=== PATIENT | female | born 1965 | race Caucasian/White ===

== ENCOUNTER 2017-10-27 09:25 | Day surgery (SDC) | payer MEDICARE ==
[~2017-10-27] VITALS: Ht 162.6 cm; Wt 58.1 kg
[~2017-10-27 09:25] MED LIST: ALBU90OI INH; AZAT50; CIPR500 PO; GUAI600T33 PO; HYDACE5 PO; HYDSUL200 PO; Keflex500 MG PO; MULVITMIND PO; PRED5; PROM25 PO; PROM25S PR; SAVELLA50 MG; SEPTRA DS PO; STOMUL PO; TIOT18 INH; Z PAK
== END 2017-10-27 11:27 | disposition home or self-care (01) ==
LOC: ORSCMMR 09:25
PROVIDERS: Internal Medicine Gastroenterology
PROC: 0DBL8ZX Excision of Transverse Colon, Via Natural or Artificial Opening Endoscopic, Diagnostic (ICD-10-PCS; principal; 2017-10-27 10:30)
PROC: 0DBN8ZX Excision of Sigmoid Colon, Via Natural or Artificial Opening Endoscopic, Diagnostic (ICD-10-PCS; principal; 2017-10-27 10:30)
PROC: 0DBP8ZX Excision of Rectum, Via Natural or Artificial Opening Endoscopic, Diagnostic (ICD-10-PCS; principal; 2017-10-27 10:30)
PROC: 0DBM8ZX Excision of Descending Colon, Via Natural or Artificial Opening Endoscopic, Diagnostic (ICD-10-PCS; principal; 2017-10-27 10:30)
DX: R19.5 Other fecal abnormalities (principal); D12.4 Benign neoplasm of descending colon; K63.5 Polyp of colon; D12.3 Benign neoplasm of transverse colon; K62.1 Rectal polyp; J44.9 Chronic obstructive pulmonary disease, unspecified; Z79.899 Other long term (current) drug therapy
CPT/HCPCS: 88305; J7120

== ENCOUNTER → 2017-12-23 | Outpatient (CLI) | payer MEDICARE | LOC: LAB SHORT 07:54 → PLD 07:54 | DX: L98.9 Disorder of the skin and subcutaneous tissue, unspecified (principal) | CPT/HCPCS: 88305; 88312 ==

== ENCOUNTER → 2018-01-28 | Outpatient (CLI) | payer MEDICARE | END | disposition home or self-care (01) | LOC: LAB SHORT 09:26 → LAB 09:26 | PROVIDERS: Nurse Practitioner Obstetrics & Gynecology | DX: Z01.419 Encounter for gynecological examination (general) (routine) without abnormal findings (principal) | CPT/HCPCS: 87624; G0123 ==

== ENCOUNTER → 2018-11-27 | Outpatient (CLI) | payer MEDICARE ==
[2018-11-27 11:33] LABS: Source, Urine Clean Catch
[2018-11-27 13:16] LABS: Bilirubin, Urine Neg (Neg); Blood, Urine 1+ (Neg); Glucose Qualitative, Urine Neg (Neg); Ketones, Urine Neg (Neg); Leukocyte Esterase, Urine Neg (Neg); Nitrite, Urine Neg (Neg); Protein, Urine Neg (Neg); Urobilinogen, Urine NORM (Normal)
[2018-11-27 14:02] LABS: Appearance, Urine Clear (Clear); Color, Urine Yellow (P-Yellow)
[2018-11-27 14:08] LABS: Bacteria Rare /hpf; Red Blood Cells, Urine 0-2 /hpf (0-2); Squamous Epithelial Cells Rare /hpf (Few); White Blood Cells, Urine Not Seen /hpf (0-5)
== END | disposition home or self-care (01) ==
LOC: LAB 11:32 → LAB SHORT 11:32
PROVIDERS: Internal Medicine
DX: R31.9 Hematuria, unspecified (principal)
CPT/HCPCS: 81001

== ENCOUNTER → 2018-12-14 | Outpatient (CLI) | payer MEDICARE ==
[2018-12-14 16:30] LABS: Source, Urine Clean Catch
[2018-12-14 17:25] LABS: Appearance, Urine Clear (Clear); Bilirubin, Urine Neg (Neg); Blood, Urine 1+ (Neg); Color, Urine Yellow (P-Yellow); Glucose Qualitative, Urine Neg (Neg); Ketones, Urine Neg (Neg); Leukocyte Esterase, Urine Neg (Neg); Nitrite, Urine Neg (Neg); Protein, Urine Neg (Neg); Urobilinogen, Urine NORM (Normal)
[2018-12-14 17:41] LABS: Squamous Epithelial Cells Rare /hpf (Few)
[2018-12-14 17:42] LABS: Bacteria Not Seen /hpf; Red Blood Cells, Urine 0-2 /hpf (0-2); White Blood Cells, Urine Not Seen /hpf (0-5)
== END | disposition home or self-care (01) ==
LOC: LAB SHORT 16:28 → LAB 16:28
PROVIDERS: Internal Medicine
DX: R31.9 Hematuria, unspecified (principal)
CPT/HCPCS: 81001

== ENCOUNTER → 2019-01-08 | Outpatient (CLI) | payer MEDICARE ==
[2019-01-08 12:15] LABS: Source, Urine Clean Catch
[2019-01-08 13:07] LABS: Bilirubin, Urine Neg (Neg); Blood, Urine 1+ (Neg); Glucose Qualitative, Urine Neg (Neg); Ketones, Urine Neg (Neg); Leukocyte Esterase, Urine Neg (Neg); Nitrite, Urine Neg (Neg); Protein, Urine Neg (Neg); Specific Gravity, Urine 1.015 (1.003-1.022); Urobilinogen, Urine NORM (Normal)
[2019-01-08 14:17] LABS: Appearance, Urine Clear (Clear); Color, Urine Yellow (P-Yellow)
[2019-01-08 14:32] LABS: Bacteria Few /hpf; Red Blood Cells, Urine 0-2 /hpf (0-2); Squamous Epithelial Cells Rare /hpf (Few); White Blood Cells, Urine Not Seen /hpf (0-5)
[2019-01-08 14:52] LABS: Candida species (DNA Probe) Negative (NEGATIVE); G. vaginalis (DNA Probe) Negative (NEGATIVE); T. vaginalis (DNA Probe) Negative (NEGATIVE)
== END | disposition home or self-care (01) ==
LOC: LAB 11:16 → LAB SHORT 11:16
PROVIDERS: Advanced Practice Midwife
DX: N76.0 Acute vaginitis (principal); R10.2 Pelvic and perineal pain
CPT/HCPCS: 81001; 87086; 87480; 87510; 87660

== ENCOUNTER 2019-04-06 09:11 | Day surgery (SDC) | payer MEDICARE ==
[~2019-04-06] VITALS: Ht 162.6 cm; Wt 55.3 kg
[~2019-04-06 09:11] MED LIST changes: +FOLATE; +METTREX2.5 PO
--- NOTE | 2019-04-06 09:40 | NUR ---
History, Chart, Medications and Allergies reviewed before start of procedure. Patient States Post-Procedure ride home has been arranged. PT HAS HEARING AIDE ON RIGHT SIDE, WOULD LIKE TO KEEP IN DURING PROCEDURE.
--- NOTE | 2019-04-06 10:08 | NUR ---
04/06/19 1008 Pam Singh PATIENT DETERMINED TO BE ASA APPROPRIATE FOR PROPOFOL SEDATION PRIOR TO START OF PROCEDURE BY DR. HYLTON. 3-LEAD EKG REVIEWED WITH PHYSICIAN PRIOR TO START OF PROCEDURE. PATIENT CONFIRMS NPO STATUS AND AGREES WITH SCHEDULED PROCEDURE. History, Chart, Medications and Allergies reviewed before start of procedure. MONITOR INTACT WITH CONTINUOUS PULSE OXIMETRY AND INTERMITTENT BP. O2 VIA N/C INTACT THROUGHOUT SEDATION/PROCEDURE VIA POM MASK @ 10 L O2, END TIDAL CO2 IN PLACE. HURRICAINE SPRAY TO OROPHARYX, THEN Bite Block Placed IMMEDIATELY PRESEDATION.
--- NOTE | 2019-04-06 12:31 | NUR ---
PT C/O SORE THROAT. BRIAN ICE CHIPS. SPO2 REMAINS WNL 96-97% ON RA. AMBULATED WITH STEADY GAIT. MAINTAINS SATURATIONS DURING EXERTION. PT REPORTS SHE IS FEELING "BETTER" AND IS READY TO GO HOME. CALL MADE TO DR. HYLTON TO UPDATE. VERBALIZED UNDERSTANDING OF DC INSTRUCTIONS. DC'D IV INTACT. DC'D VIA WC.
== END 2019-04-06 23:09 | disposition home or self-care (01) ==
LOC: ORSCMMR 09:11 → ORD 10:00 → ORSCMMR 23:09
PROVIDERS: Internal Medicine Gastroenterology
PROC: 0DB98ZX Excision of Duodenum, Via Natural or Artificial Opening Endoscopic, Diagnostic (ICD-10-PCS; principal; 2019-04-06 10:00)
DX: R13.14 Dysphagia, pharyngoesophageal phase (principal); K29.80 Duodenitis without bleeding; K22.10 Ulcer of esophagus without bleeding; J44.9 Chronic obstructive pulmonary disease, unspecified; M79.7 Fibromyalgia; Z79.899 Other long term (current) drug therapy
CPT/HCPCS: 88305; 88342; J0330; J1100; J2250; J2704; J7120

== ENCOUNTER 2019-07-26 16:53 | Emergency (ER) | payer MEDICARE ==
[~2019-07-26] VITALS: Ht 162.6 cm; Wt 54.4 kg
[2019-07-26] MEDS ORDERED: OMEPRAZOLE DR 20 MG (17:50)
[2019-07-26] MEDS ORDERED: Ventolin/Prove6.7 GM (17:50)
== END 2019-07-26 18:38 | disposition home or self-care (01) ==
LOC: ER 16:53
DX: J44.1 Chronic obstructive pulmonary disease with (acute) exacerbation (principal); Z88.0 Allergy status to penicillin; Z79.899 Other long term (current) drug therapy
CPT/HCPCS: 71046; 94640; 99285-25; J1100

== ENCOUNTER → 2019-10-07 | Outpatient (CLI) | payer MEDICARE ==
[~2019-10-07] MED LIST changes: +OMEPRAZOLE DR 20 MG; +Ventolin/Prove6.7 GM
== END | disposition home or self-care (01) ==
LOC: LAB SHORT 09:05 → LAB 09:05
DX: R05 Cough (principal)
CPT/HCPCS: 87015; 87116; 87206

== ENCOUNTER → 2019-10-08 | Outpatient (CLI) | payer MEDICARE | END | disposition home or self-care (01) | LOC: LAB 08:26 → LAB SHORT 08:26 | DX: R05 Cough (principal) | CPT/HCPCS: 87015; 87116; 87206 ==

== ENCOUNTER 2020-12-29 06:11 | Day surgery (SDC) | payer MEDICARE ==
[~2020-12-29] VITALS: Ht 162.6 cm; Wt 52.5 kg
[~2020-12-29 06:11] MED LIST changes: +ACET500 PO; +DIPH25 PO; +FLUT.05NI; +FOLI1 PO; +IBUP200 PO; +MAGNESIUM CHLORIDE PO; +MIRALAX17 GM PO; -OMEPRAZOLE DR 20 MG; +OMEPRAZOLE DR 20 MG PO; +SERT50 PO; +SERTRALINE HCL50 MG PO
--- NOTE | 2020-12-29 06:55 | NUR ---
ARRIVES TO WITH WALKER. History, Chart, Medications and Allergies reviewed before start of procedure. Lungs clear T/O to Auscultation. Patient confirms NPO status and agrees with scheduled surgery. Pre-Op teaching done. Pt verbalizes understanding. Patient States Post-Procedure ride home has been arranged. Patient reports completing Chlorhexadine shower X2 prior to admission to hospital.
[2020-12-29] MEDS ORDERED: ROBITUSSIN100 MG/5 M PO (07:09)
--- NOTE | 2020-12-29 12:38 | NUR ---
Discharge instructions reviewed with patient. Patient verbalizes understanding. Copy given to patient to take home. Discharged via wheelchair to private car for ride home. CALLED AND SPOKE WITH SPOUSE OVER THE PHONE, REVEIWED DISCHARGE INSTRUCTIONS WITH HIM WELL PT.
== END 2020-12-29 22:58 | disposition home or self-care (01) ==
LOC: ORSCMMR 06:11
PROVIDERS: Surgery
PROC: 0YUA4JZ Supplement Bilateral Inguinal Region with Synthetic Substitute, Percutaneous Endoscopic Approach (ICD-10-PCS; principal; 2020-12-29 07:30)
PROC: 8E0W4CZ Robotic Assisted Procedure of Trunk Region, Percutaneous Endoscopic Approach (ICD-10-PCS; principal; 2020-12-29 07:30)
DX: K40.20 Bilateral inguinal hernia, without obstruction or gangrene, not specified as recurrent (principal); J44.9 Chronic obstructive pulmonary disease, unspecified; K21.9 Gastro-esophageal reflux disease without esophagitis; G80.9 Cerebral palsy, unspecified; M79.7 Fibromyalgia; Z79.899 Other long term (current) drug therapy
CPT/HCPCS: 49650; S2900; A9270; A9270-GY; C1781; J0690; J1100; J1885; J2250; J2405; J2704; J3010; J7120

== ENCOUNTER 2021-09-01 13:35 | Emergency (ER) | payer MEDICARE ==
[~2021-09-01] VITALS: Ht 162.6 cm; Wt 63.5 kg
[~2021-09-01 13:35] MED LIST changes: +ROBITUSSIN100 MG/5 M PO
[2021-09-01 14:26] LABS: BASOPHILS ABSOLUTE AUTO 0.06 K/mm3 (0.00-0.23); BASOPHILS PERCENT AUTO 1 % (0-2); EOSINOPHILS ABSOLUTE AUTO 0.65 K/mm3 (0.00-0.68); EOSINOPHILS PERCENT AUTO 7 % (0-6); Hemoglobin 13.1 g/dL (11.5-16.0); IMMATURE GRAN ABSOLUTE AUTO 0.05 K/mm3 (0.00-0.10); IMMATURE GRAN PERCENT AUTO 1 % (0-1); LYMPHOCYTES ABSOLUTE AUTO 1.02 K/mm3 (0.84-5.20); LYMPHOCYTES PERCENT AUTO 11 % (21-46); MONOCYTES ABSOLUTE AUTO 1.08 K/mm3 (0.16-1.47); MONOCYTES PERCENT AUTO 12 % (4-13); Mean Corpuscular HGB 27.9 pg (26.0-34.0); Mean Corpuscular HGB Conc 32.8 g/dL (31.5-36.5); Mean Corpuscular Volume 85 fL (80-100); Mean Platelet Volume 10.1 fL (9.1-12.4); NEUTROPHILS ABSOLUTE AUTO 6.47 K/mm3 (1.96-9.15); NEUTROPHILS PERCENT AUTO 69 % (41-73); Platelet Count 183 K/mm3 (150-400); RDW Coefficient Variation 13.6 % (11.7-14.2); RDW Standard Deviation 42.6 fL (35.1-46.3); White Blood Cell Count 9.33 K/mm3 (4.00-11.30)
[2021-09-01 14:26] LABS: Source, Urine Catheter
[2021-09-01 14:31] LABS: Appearance, Urine Hazy (Clear); Bilirubin, Urine Neg (Neg); Blood, Urine 4+ (Neg); Color, Urine Yellow (P-Yellow); Glucose Qualitative, Urine Neg (Neg); Ketones, Urine Neg (Neg); Leukocyte Esterase, Urine 1+ (Neg); Nitrite, Urine Pos (Neg); Protein, Urine 2+ (Neg); Urobilinogen, Urine NORM (Normal)
[2021-09-01 14:45] LABS: Amorphous Light (0-Heavy); Bacteria Many /hpf; Mucus Mod (0-Heavy); Squamous Epithelial Cells Few /hpf (Few)
[2021-09-01 14:46] LABS: Granular Casts 0-2 /lpf (0); Hyaline Casts 0-2 /lpf (0-2)
[2021-09-01 14:47] LABS: Alanine Aminotransfer (ALT/SGP 29 U/L (12-78); Albumin, Blood 3.2 g/dL (3.4-5.0); Albumin/Globulin Ratio 0.7 (0.8-1.8); Alk Phos 79 U/L (50-136); Anion Gap 7 mmol/L (6-16); Aspartate Aminotrans (AST/SGOT 30 U/L (12-37); Bilirubin, Total 0.4 mg/dL (0.1-1.0); Blood Urea Nitrogen 22 mg/dL (8-24); Bun/Creatinine Ratio 34.1 (12.0-20.0); CO2, Blood 27 mmol/L (21-32); Calcium, Blood 9.1 mg/dL (8.5-10.1); Chloride, Blood 106 mmol/L (98-108); Creatinine, Blood 0.65 mg/dL (0.40-1.00); Globulin, Blood 4.9 g/dL (2.2-4.0); Glomerular Filtration Rate >60 (60-); Glucose, Blood 119 mg/dL (70-99); Potassium, Blood 4.1 mmol/L (3.5-5.5); Sodium, Blood 140 mmol/L (136-145); Total Protein, Blood 8.1 g/dL (6.4-8.2)
[2021-09-01] MEDS ORDERED: CEPH500 PO (17:00)
== END 2021-09-01 17:48 | disposition home or self-care (01) ==
LOC: ER 13:35
PROVIDERS: Emergency Medicine; Physician Assistant
DX: N39.0 Urinary tract infection, site not specified (principal); J44.9 Chronic obstructive pulmonary disease, unspecified; Z88.0 Allergy status to penicillin; Z79.899 Other long term (current) drug therapy
CPT/HCPCS: 36415; 51701; 70450; 80053; 81001; 85025; 87077; 87086; 87186; 96365; 99285-25; J0696; J7030

== ENCOUNTER 2021-09-14 11:22 | Emergency (ER) | payer MEDICARE ==
[~2021-09-14] VITALS: Ht 162.6 cm; Wt 54.4 kg
[~2021-09-14 11:22] MED LIST changes: +CEPH500 PO
[2021-09-14 11:49] LABS: Source, Urine Clean Catch
[2021-09-14 11:54] LABS: Appearance, Urine Hazy (Clear); Bilirubin, Urine Neg (Neg); Blood, Urine 3+ (Neg); Color, Urine Yellow (P-Yellow); Glucose Qualitative, Urine Neg (Neg); Ketones, Urine Neg (Neg); Leukocyte Esterase, Urine 1+ (Neg); Nitrite, Urine Pos (Neg); Protein, Urine 1+ (Neg); Urobilinogen, Urine NORM (Normal)
[2021-09-14 12:16] LABS: BASOPHILS ABSOLUTE AUTO 0.12 K/mm3 (0.00-0.23); BASOPHILS PERCENT AUTO 1 % (0-2); EOSINOPHILS ABSOLUTE AUTO 0.15 K/mm3 (0.00-0.68); EOSINOPHILS PERCENT AUTO 1 % (0-6); Hematocrit 46.8 % (33.0-51.0); Hemoglobin 14.6 g/dL (11.5-16.0); IMMATURE GRAN ABSOLUTE AUTO 0.04 K/mm3 (0.00-0.10); IMMATURE GRAN PERCENT AUTO 0 % (0-1); LYMPHOCYTES ABSOLUTE AUTO 1.39 K/mm3 (0.84-5.20); LYMPHOCYTES PERCENT AUTO 11 % (21-46); MONOCYTES ABSOLUTE AUTO 1.21 K/mm3 (0.16-1.47); MONOCYTES PERCENT AUTO 10 % (4-13); Mean Corpuscular HGB 27.1 pg (26.0-34.0); Mean Corpuscular HGB Conc 31.2 g/dL (31.5-36.5); Mean Corpuscular Volume 87 fL (80-100); NEUTROPHILS ABSOLUTE AUTO 9.76 K/mm3 (1.96-9.15); NEUTROPHILS PERCENT AUTO 77 % (41-73); Platelet Count 266 K/mm3 (150-400); RDW Coefficient Variation 13.8 % (11.7-14.2); RDW Standard Deviation 44.4 fL (35.1-46.3); Red Blood Cell Count 5.39 M/mm3 (3.80-5.20); White Blood Cell Count 12.67 K/mm3 (4.00-11.30)
[2021-09-14 12:32] LABS: Red Blood Cells, Urine 0-2 /hpf (0-2)
[2021-09-14 12:33] LABS: Bacteria Many /hpf; Mucus Light (0-Heavy); Squamous Epithelial Cells Not Seen /hpf (Few)
[2021-09-14 12:40] LABS: Alanine Aminotransfer (ALT/SGP 29 U/L (12-78); Albumin, Blood 3.5 g/dL (3.4-5.0); Albumin/Globulin Ratio 0.7 (0.8-1.8); Alk Phos 78 U/L (50-136); Anion Gap 5 mmol/L (6-16); Aspartate Aminotrans (AST/SGOT 35 U/L (12-37); Bilirubin, Total 0.7 mg/dL (0.1-1.0); Blood Urea Nitrogen 18 mg/dL (8-24); CO2, Blood 28 mmol/L (21-32); Calcium, Blood 9.2 mg/dL (8.5-10.1); Chloride, Blood 106 mmol/L (98-108); Creatinine, Blood 0.69 mg/dL (0.40-1.00); Ethanol (Alcohol), Blood, Med <3 mg/dL; Globulin, Blood 4.8 g/dL (2.2-4.0); Glomerular Filtration Rate >60 (60-); Glucose, Blood 127 mg/dL (70-99); Potassium, Blood 3.9 mmol/L (3.5-5.5); Salicylate <1.7 mg/dL (2.8-20.0); Sodium, Blood 139 mmol/L (136-145); Total Protein, Blood 8.3 g/dL (6.4-8.2)
[2021-09-14 12:50] LABS: Acetaminophen, Random <2.0 ug/mL (10.0-30.0)
[2021-09-14 12:59] LABS: U Amphetamine Screen Not Detected; U Barbituate Screen Not Detected; U Benzodiazapine Screen DETECTED; U Cocaine Screen Not Detected; U Methadone Screen Not Detected; U Methamphetamine Screen Not Detected; U Opiates Screen Not Detected; U Phencyclidine Screen Not Detected
[2021-09-14 13:00] LABS: U Buprenorphine Screen Not Detected; U Cannabinoids Screen Not Detected; U Oxycodone Screen Not Detected; U Propoxyphene Screen Not Detected
[2021-09-14] MEDS ORDERED: RISPERDAL PO (15:00)
== END 2021-09-14 15:20 | disposition home or self-care (01) ==
LOC: ER 11:22
PROVIDERS: Physician Assistant
DX: F22 Delusional disorders (principal); J44.9 Chronic obstructive pulmonary disease, unspecified; Z79.899 Other long term (current) drug therapy; Z88.0 Allergy status to penicillin
CPT/HCPCS: 36415; 80053; 81001; 85025; 87077; 87086; 87186; 93005; 93010; G0480

== ENCOUNTER 2021-09-18 10:38 | Observation (INO) | payer MEDICARE ==
[~2021-09-18] VITALS: Ht 162.6 cm; Wt 49.5 kg
[~2021-09-18 10:38] MED LIST changes: +OMEP20ER PO; -OMEPRAZOLE DR 20 MG PO; +RISPERDAL PO
[2021-09-18 15:46] LABS: BASOPHILS ABSOLUTE AUTO 0.12 K/mm3 (0.00-0.23); BASOPHILS PERCENT AUTO 1 % (0-2); EOSINOPHILS ABSOLUTE AUTO 0.09 K/mm3 (0.00-0.68); EOSINOPHILS PERCENT AUTO 1 % (0-6); Hematocrit 47.5 % (33.0-51.0); IMMATURE GRAN ABSOLUTE AUTO 0.02 K/mm3 (0.00-0.10); IMMATURE GRAN PERCENT AUTO 0 % (0-1); LYMPHOCYTES ABSOLUTE AUTO 1.17 K/mm3 (0.84-5.20); LYMPHOCYTES PERCENT AUTO 12 % (21-46); MONOCYTES ABSOLUTE AUTO 0.85 K/mm3 (0.16-1.47); MONOCYTES PERCENT AUTO 9 % (4-13); Mean Corpuscular HGB 27.3 pg (26.0-34.0); Mean Corpuscular HGB Conc 31.6 g/dL (31.5-36.5); Mean Corpuscular Volume 87 fL (80-100); Mean Platelet Volume 10.1 fL (9.1-12.4); NEUTROPHILS ABSOLUTE AUTO 7.16 K/mm3 (1.96-9.15); NEUTROPHILS PERCENT AUTO 76 % (41-73); Platelet Count 224 K/mm3 (150-400); RDW Coefficient Variation 13.9 % (11.7-14.2); RDW Standard Deviation 44.1 fL (35.1-46.3); Red Blood Cell Count 5.49 M/mm3 (3.80-5.20); White Blood Cell Count 9.41 K/mm3 (4.00-11.30)
[2021-09-18 16:10] LABS: Alanine Aminotransfer (ALT/SGP 33 U/L (12-78); Albumin, Blood 3.8 g/dL (3.4-5.0); Albumin/Globulin Ratio 0.7 (0.8-1.8); Alk Phos 85 U/L (50-136); Anion Gap 5 mmol/L (6-16); Aspartate Aminotrans (AST/SGOT 29 U/L (12-37); Bilirubin, Total 0.9 mg/dL (0.1-1.0); Blood Urea Nitrogen 17 mg/dL (8-24); Bun/Creatinine Ratio 22.6 (12.0-20.0); CO2, Blood 29 mmol/L (21-32); Calcium, Blood 9.5 mg/dL (8.5-10.1); Chloride, Blood 106 mmol/L (98-108); Creatinine, Blood 0.75 mg/dL (0.40-1.00); Ethanol (Alcohol), Blood, Med <3 mg/dL; Globulin, Blood 5.4 g/dL (2.2-4.0); Glomerular Filtration Rate >60 (60-); Glucose, Blood 123 mg/dL (70-99); Potassium, Blood 4.3 mmol/L (3.5-5.5); Salicylate <1.7 mg/dL (2.8-20.0); Sodium, Blood 140 mmol/L (136-145); Total Protein, Blood 9.2 g/dL (6.4-8.2)
[2021-09-18 16:13] LABS: Thyroxine (T4) 9.5 ug/dL (4.8-13.9)
[2021-09-18 16:14] LABS: Acetaminophen, Random <2.0 ug/mL (10.0-30.0)
[2021-09-18 16:29] LABS: Influenza A, PCR NEGATIVE (NEGATIVE); Influenza B, PCR NEGATIVE (NEGATIVE); Resp Syncytial Virus, PCR NEGATIVE (NEGATIVE); SARS-Cov-2 (COVID-19) PCR, MMC NEGATIVE (NEGATIVE)
[2021-09-18 21:02] LABS: U Amphetamine Screen Not Detected; U Barbituate Screen Not Detected; U Benzodiazapine Screen DETECTED; U Buprenorphine Screen Not Detected; U Cannabinoids Screen Not Detected; U Cocaine Screen Not Detected; U Methadone Screen Not Detected; U Methamphetamine Screen Not Detected; U Opiates Screen Not Detected; U Oxycodone Screen Not Detected; U Phencyclidine Screen Not Detected; U Propoxyphene Screen Not Detected
[2021-09-19 09:40] LABS: Source, Urine Clean Catch
[2021-09-19 09:44] LABS: Appearance, Urine Clear (Clear); Bilirubin, Urine Neg (Neg); Blood, Urine 2+ (Neg); Color, Urine Yellow (P-Yellow); Glucose Qualitative, Urine Neg (Neg); Ketones, Urine 1+ (Neg); Leukocyte Esterase, Urine 2+ (Neg); Nitrite, Urine Neg (Neg); Protein, Urine 1+ (Neg); Specific Gravity, Urine 1.025 (1.003-1.022); Urobilinogen, Urine NORM (Normal)
[2021-09-19 09:58] LABS: Bacteria Few /hpf; Squamous Epithelial Cells Rare /hpf (Few)
[2021-09-19 09:59] LABS: Hyaline Casts 0-2 /lpf (0-2); Mucus Heavy (0-Heavy)
--- NOTE | 2021-09-19 18:10 | NUR ---
SHIFT SUMMARY- PT ADMITTED THROUGH ED, NEEDS PLACEMENT [facility]. PT ARRIVED WITH NO IV ACCESS AND AN ORDER FOR A FLUID BOLUS. CALLED ADMITTING PROVIDER FOR CLARIFICATION. HE ORDERED IV PLACEMENT AND FLUID BOLUS. PT IS A VERY HARD STICK, IV WAS PLACED, FLUID BOLUS WAS REORDERED PREVIOUS ORDER WAS ED ORDER AND COULD NOT BE PULLED FROM THE PIXIS. PT DOSE NOT TALK MUCH, SHE IS A LITTLE FEARFUL, BUT LONG STAFF TELL HER WHAT IS HAPPENING STEP BY STEP SHE RESPONDS WELL. IV IS A 22G IN THE LEFT AC, NS RUNNING AT 250ML/HR AT THIS TIME FOR IV PROTECTION. UNABLE TO CONFIRM THE PT MEDICAL Hx OR MEDICATIONS, PT IS A POOR HISTORIAN. PT IN THEBED, CALL LIGHT IN REACH, NO S&S OF DISTRESS NOTED AT THIS TIME WILL CTM AND PASS ON TO NIGHT RN IN REPORT.
--- NOTE | 2021-09-20 04:36 | NUR ---
SHIFT SUMMARY ALERT, ABLE TO MAKE NEEDS KNOWN. COOPERATIVE WITH CARE. INSTRUCTION GIVEN BEFORE INTERVENTIONS. PATIENT IS FEARFUL. APPEARED TO REST WELL OVERNIGHT. NO ACUTE CHANGES NOTED. REQUIRES 1P ASSIST /c ALL TRANSFERS. BED REMAINED IN LOWEST POSITION. CALL LIGHT WITHIN REACH; HOWEVER, DOES NOT UTILIZE. REPORT TO ONCOMING RN.
--- NOTE | 2021-09-20 09:32 | NUR ---
SPOKE TO PT'S APD ADVERTISING ACCOUNT EXECUTIVE GILMAR [phone], GAVE UPDATE ON PT SAMARIA AND PLAN FOR D/C.
--- NOTE | 2021-09-20 18:13 | NUR ---
SHIFT SUMMARY: A&O X 2, NO SIGNS OF HALLUCINATIONS, BUT IS REFUSING TO EAT, DRINK, GET UP TO BR. WAS SINGING QUIETLY TO HERSELF MOST OF THE DAY. SKIN IS VERY DRY WITH LARGE PATCHES OF PSORIASIS; REFUSED ALL ATTEMPTS AT BATHING AND ORAL CARE. REFUSING LOVENOX. THIS AUTHOR SPOKE WITH SPOUSE AND PT'S SISTER TO GIVE UPDATES. DENIES PAIN.
--- NOTE | 2021-09-21 05:02 | NUR ---
PT HAS BEEN AWAKE ALL NIGHT. ORIENTED TO SELF/FAMILY ONLY. PT IS PARANOID WITH CARE, HOWEVER PLEASANT, AND TOOK MEDICATIONS WHEN WAS AT BEDSIDE AT START OF SHIFT. REFUSED MEDICATIONS AFTER. PT IS CALM AND PACES THE ROOM WITH A/V HALLUCINATIONS, IS ABLE TO MAKE NEEDS KNOWN. NO STAND BY NEEDED SHE IS STABLE ON HER FEET. STAFF WILL CONT TO MONITOR.
--- NOTE | 2021-09-21 12:37 | NUR ---
PATIENT WITH WANDERING BEHAVIORS, STATES SHE'S LOOKING FOR HER WHO IS IN THE BUILDING (HE IS NOT). A&O X 1-2, PARANOID AT TIMES, HAVING MILD VISUAL HALLUCINATIONS. D/T PATIENT'S REDUCED VISION AND HEARING, SHE WAS MOVED TO ROOM 347 IN SPECIAL [facility]ARE UNIT THIS AUTHOR WAS CONCERNED THAT SHE WOULD GET LOST WHILE WALKING AROUND UNIT. CALLED SPOUSE RUBI RODRIGUEZ TO REPORT ROOM CHANGE, LEFT VM.
--- NOTE | 2021-09-21 16:52 | NUR ---
SHIFT SUMMARY/ROOM TRANSFER NOTE PT ARRIVED FROM MAIN MEDICAL FLOOR TO [facility] [place] AT APPROX 1230 TODAY. REPORT TAKEN FROM VICK RHOADES. REVIEWED VICK'S ASSESSMENT AND AGREE WITH NOTES. PT AxOx2. VERY CONFUSED WITH PARANOID BEHAVIORS. PT IS WANDERING THE HALLS INDEPENDENTLY, BUT DOES ATTEMPT TO GO INTO OTHER PATIENTS ROOMS OCCASIONALLY. REDIRECTING NEEDED/WHEN WILLING. PT REFUSING TO EAT OR DRINK. PULSE RUNNING IN 100-110'S. PT IS CURRENTLY SITTING IN ROOM. DENIES ANY PAIN OR OTHER NEEDS AT THIS TIME. CALL LIGHT IN REACH.
--- NOTE | 2021-09-22 04:29 | NUR ---
SHIFT SUMMARY PT AOX2 AT TIMES BUT MOSTLY CONFUSED AND WONDERS IN THE [place] THIS SHIFT. PT EASY TO REDIRECT AT TIMES AND DID EAT/DRINK SOMETHING THIS SHIFT. ALSO THE PT TOOK MEDS AND ALLOWED THIS NURSE TO RUN IV MEDS WHILE SITTING IN THE ROOM. PT RESTED SOME THIS SHIFT AND CURRENTLY ASLEEP WITH RISE AND FALL OF CHEST. THIS NURSE WILL CONTINUE TO MONITOR UNTIL REPORT IS GIVEN.
--- NOTE | 2021-09-22 11:48 | NUR ---
PER DR KIM'S REQUEST, THIS NURSE CALLED PATIENT'S SPOUSE TO ASK IF HE COULD BRING IN LOTION OR CREME THAT PATIENT USES AT HOME. NO ANSWER, LEFT GENERIC MESSAGE TO CALL THIS NURSE BACK.
--- NOTE | 2021-09-22 13:45 | NUR ---
ORAL INTAKE ENCOURAGED. PT STATES "I WILL" WHEN NURSE ASKED HER TO EAT SOME LUNCH. THIS NURSE LEFT ROOM BUT THEN SAW PATIENT TAKING SIPS OF HER PEPSI FROM HER CUP.
--- NOTE | 2021-09-22 15:00 | NUR ---
THIS NURSE ATTEMPTED 22G IV TO L FOREARM. PT TOLD NURSE TO STOP AND THIS NURSE DISCONTINUED ATTEMPT. NO IV ACCESS AT THIS TIME. PT PULLED PRIOR IV.
--- NOTE | 2021-09-22 17:32 | NUR ---
SHIFT SUMMARY PT AXO TO SELF. REFUSED AM MEDICATIONS EXCEPT FOLIC ACID, SEE EMAR. WHEN TRYING TO ENCOURAGE PO INTAKE PATIENT SAID "I WILL." PT SEEN BY THIS NURSE SIPPING WATER AND PEPSI A FEW TIMES THIS SHIFT BUT PATIENT HAS NOT EATEN ANY FOOD FROM HER TRAY. IV ATTEMPTED WHEN IV ACCESS LOST THIS SHIFT BUT ATTEMPT WAS NOT SUCCESSFUL. DR RIZO NOTIFIED AND OKAY TO LEAVE IV OUT ORDER PLACED. BED IN LOW POSITION, CALL LIGHT WITHIN REACH, BED ALARM ON. PT DANGLING AT BEDSIDE AND STANDS UP AT TIMES. PT'S SISTER AND SPOUSE UPDATED THIS SHIFT.
--- NOTE | 2021-09-23 04:34 | NUR ---
SHIFT SUMMARY PT AOX2 AT TIMES AND NENA[place] PLUS FORGETFUL THIS SHIFT. PT WONDERS IN [place] AND ATTEMPTED TO LEAVE UNIT 3 TIMES THIS SHIFT, EASY TO REDIRECT AT TIMES. PT HAS NOT RESTED AT ALL THIS SHIFT BUT DID TAKE HS MEDICATION. PT HAS TO CHECK THE PILLS AND POUR OUT WATER MULTIPLE TIMES BEFORE TAKING MEDICATION. THE PT SPOUSE CALLED TO INFORM STAFF ABOUT A TOOTHACE AND PT WAS GIVEN A NEW TOOTHBRUSH/TOOTHPASTE THAT WAS NOT USED. PT CURRENTLY USING WALKER IN THE ROOM AND FOLDING SHEETS. PT DENIES ANY NEEDS BUT HAS DRANK WATER THIS SHIFT. THIS NURSE WILL CONTINUE TO MONITOR UNTIL REPORT IS GIVEN.
--- NOTE | 2021-09-23 10:04 | NUR ---
this nurse rounded on patient at 10 to find her sitting on the floor. this nurse asked her how she arrived to the floor. pt states that she "sat down." CHARGE NURSE NOTIFIED AND PATIENT NOW ON REMOTE CAMERA MONITORING TO VERIFY THAT PATIENT IS NOT FALLING TO THE FLOOR. BED IN LOW POSITION, CALL LIGHT WITHIN REACH. BED ALARM NOT ON R/T PT BEING SO SMALL AND SETTING ALARM OFF WITH SHIFTING WEIGHT. DR. JOYNER UPDATED ON PATIENT AGGITATION AND FLOOR SITUATION. CONTINUE OBSERVING AT THIS TIME.
--- NOTE | 2021-09-23 11:29 | NUR ---
PT'S SISTER VERONIKA CALLED FOR UPDATE. THIS NURSE NOTIFIED HER THAT PATIENT INTAKE IS VERY POOR AND THAT PATIENT IS NOW ON CAMERA FOR SAFETY. ALSO NOTIFIED THAT PATIENT WAS FOUND SITTING ON THE FLOOR AT START OF SHIFT AND THEN AGAIN AT ABOUT 10AM. PT REFUSING ALL PATIENT CARE. VERONIKA ASKED IF THE DOCTOR COULD CALL HER AND THEY COULD DISCUSS CARE GOALS AND CONSIDER COMFORT CARE. DR CHAGO CARROLL NOTIFIED AND GIVEN VERONIKA'S PHONE NUMBER. DR. CARROLL TO DISCUSS THIS WITH DR JOYNER. VERONIKA ALSO STATED THAT AFTER SHE HAS A DISCUSSION WITH HOPSITALIST THAT SHE WILL CALL PATIENT'S SPOUSE AND DECIDE HOW TO PROCEED.
--- NOTE | 2021-09-23 17:32 | NUR ---
SHIFT SUMMARY PT AXO X4 THIS MORNING BUT AGGITATED. HALLUCINATIONS INCREASING THROUGHOUT THE SHIFT. THIS NURSE ATTEMPTED PRN MEDICATION THIS MORNING THOUGH PT DROPPED PILL ON THE FLOOR WHICH NURSE LATER FOUND. SEE MAR. PRN AGGITATION MEDICATION SUCCESSFULLY ADMINISTERED X1 THIS SHIFT. PT CONTINUES TO WANDER AROUND ROOM AND REFUSES ALL ADL ASSISTANCE, MEALS OR HELP. PT SEE PRIOR NOTES FROM THIS SHIFT. PT DENIES PAIN, SOB AND NV. BED IN LOW POSITION, CALL LIGHT WITHIN REACH.
[2021-09-24] MEDS ORDERED: RISP.5 PO (03:52)
--- NOTE | 2021-09-24 04:19 | NUR ---
SHIFT SUMMARY PT AOX1-2 WITH INCREASED HALLUCINATIONS AND DELUSIONAL THOUGHTS THIS SHIFT. PT WAS IN THE RESTROOM BUT URINATED ON THE FLOOR INSTEAD OF IN THE TOILET AND BLAMED "THAT LADY IN THE RED HAD TO DO THIS NOT ME!" PT WAS NOT COOPERATIVE WITH CLEANING THEM UP BUT FINALLY ALLOWED STAFF TO ASSIST. PT WAS CLEANED UP AND C/O LEMOS (FROM LACK OF SLEEP OVER 24HRS), MEDICATED PER EMAR. PT TOOK PILLS ONE BY ONE AND HAD TO EXAMINE THE PACKETS PRIOR TO TAKING PILLS. PT DID NOT DRINK ON CUP OF WATER D/T "GREEN HAIR ALL OVER THE CUP!" HOWEVER, TWO EMPTY ENSURES WERE AT THE BEDSIDE EVEN THOUGH DINNER WAS NOT TOUCHED. THE PT STATED, "HOW WOULD YOU FEEL IF SOMEBODY TRIED TO MAKE TO EAT BAD THINGS THAT HAS POISON IN IT?" THIS NURSE OFFERED FOOD ITEMS THAT WERE WRAPPED TO ENSURE SAFETY BUT THE PT DECLINED ALL ITEMS. PT WAS PULLING ITEMS OUT THE TRASH AND THROWING THINGS ON THE FLOOR THIS SHIFT. AFTER WANDERING INTO THE [place] TO ATTEMPT TO ENTER ANOTHER ROOM THE PT WAS REDIRECT AND ALLOWED STAFF TO ASSIST INTO THEIR BED. PT FINALLY WAS ABLE TO REST WITH SNORING HEARD UPON ROUNDS AND NO S/S OF DISTRESS. PT STILL ASLEEP AND THIS NURSE WILL CONTINUE TO MONITOR UNTIL REPORT IS GIVEN.
--- NOTE | 2021-09-24 12:16 | NUR ---
COMFORT CARE PATIENT CURRENTLY SITTING UP IN BED TALKING TO TRISTON MORALES. PATIENT IN NO SIGNS OF DISTRESS. WILL CONTINUE TO MONIOR.
--- NOTE | 2021-09-24 13:17 | NUR ---
COMFORT CARE PATIENT SITTING UP ON EDGE OF BED MUMBLING TO SELF. OFFERED PATIENT FRESH ICE WATER. PATIENT ACCEPTED IT BUT WOULD NOT DRINK IT. PATIENT REFUSING TO EAT LUNCH STATING SHE IS NOT HUNFRY. WILL CONTINUE TO MONITOR.
--- NOTE | 2021-09-24 16:10 | NUR ---
COMFORT CARE PATIENT SITTING ON EDGE OF BED. PATIENT WILL GET UP PERIODICALLY AND WALK AROUND ROOM. PATIENT BEGAN WALKING OUT OF ROOM. WHEN ASKED WHERE SHE WAS GOING RESPONDED THAT SOMEONE WAS CALLING HER. OFFERED A SNACK BUT PATIENT DID NOT WANT ANYTHING. WILL CONTINUE TO MONITOR.
--- NOTE | 2021-09-24 16:17 | NUR ---
COMFORT CARE PATIENT SITTING UP ON EDGE OF BED. PATIENT IS PICKING UP THE PHONE AND TALKING TO SOMEONE BUT NOONE IS ON THE OTHER LINE. OFFERED TO CALL HER SISTER FOR HER. WE ATTEMPTED TO CALL HER SISTER BUT NO ANSWER.
--- NOTE | 2021-09-24 18:16 | NUR ---
COMFORT CARE PATIENT SITTING ON EDGE OF BED MUMBLING TO SELF. PATIENT GIVEN DINNER BUT PATIENT STILL NOT EATING OR DRINKING ANYTHING. ASKED PATIENT IF THERE WAS ANYTHING ELSE WE COULD GET HER. SHE STATED SHE WOULD EAT HER DINNER BUT STILL WOULD NOT TAKE A BITE. WILL CONTINUE TO OFFER FOOD AND WATER.
--- NOTE | 2021-09-24 18:30 | NUR ---
SHIFT SUMMARY PT A&0 X1-2 WITH HALLUCINATIONS AND DELUSIONAL THOUGHTS. PATIENT SPENDS MOST OF SHIFT SITTING ON EDGE OF BED MUMBLING, SINGING, OR TALKING TO THE TRASH CAN. PATIENT WILL GET UP AND WANDER AROUND ROOM. REFUSES ALL FOOD AND DRINK, ADL ASSISTANTS OR ANY HELP. PATIENT WILL NOT ENGAGE IN ANY CONVERSATIONS, ANSWERING MOST QUESTIONS WITH YES OR NO. PATIENT TRANSITIONED TO COMFORT CARE TODAY. DENIES PAIN, SOB, N/V. BED IN LOW POSITION WITH CALL LIGHT IN REACH. WILL CONTINUE TO MONITOR.
--- NOTE | 2021-09-25 02:02 | NUR ---
PT AWAKE AND DENIES ANY NEEDS AT THE MOMENT. PT AMBULATES TO RESTROOM INDEPENDENTLY AND WATER AT THE BEDSIDE.
--- NOTE | 2021-09-25 04:00 | NUR ---
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 PT HAS CONFUSION AT TIMES AND HALLUCINATIONS OF PEOPLE PRESENT IN THEIR ROOM. PT DID NOT EAT DINNER BUT TOOK HS MEDICATIONS WITH SIPS OF WATER. PT GOT IN BED AND DENIED ANY OF NEEDS AT THE MOMENT. PT RESTED WITH RISE AND FALL OF CHEST NO S/S OF DISTRESS. PT CURRENTLY SITTING IN THEIR CHAIR DRINKING AN ENSURE AND DENIES ANY OTHER NEEDS AT THE MOMENT. THIS NURSE WILL CONTINUE TO MONITOR UNTIL REPORT IS GIVEN.
--- NOTE | 2021-09-25 05:36 | NUR ---
PT OFFERED WATER TO HELP WITH COUGHS BUT PT SAID, "I KEEP CHOKING ON THIS GREEN HAIR I PUT ON THE TABLE!" NO GREEN HAIR PRESENT AND THIS NURSE OFFERED MORE WATER WHILE ATTEMPTING TO ORIENT THE PT. PT STILL TRYING TO CLEAR THROAT AND CONVINCED THEY ARE CHOKING ON HAIR.
--- NOTE | 2021-09-25 17:22 | NUR ---
NO ACUTE CHANGES PT AOX1. PT DID NOT TAKE MEDICATION THIS AM SHE JUST WOULD NOT PUT MED IN MOUTH AND WOULD NOT ACCEPT HELP. PT INDEPENDENT IN ROOM AND SEEMS REDIRECTABLE TO HE ROOM WHEN SHE WANDERS OUT. NO DISTRESS NOTED CAMERA IS WATCHING WILL CONTINUE TO MONITOR.
--- NOTE | 2021-09-25 21:57 | NUR ---
PT TOOK HS MEDS WHOLE BUT IS STILL CONVINCED THEY ARE CHOKING ON "GREEN HAIR," THIS NURSE PLACED A NEW WATER IN THE ROOM. PT CONTENT BUT DENIES ANY NEEDS AT THE MOMENT. WILL CONTINUE TO MONITOR.
--- NOTE | 2021-09-26 00:42 | NUR ---
PT ASLEEP IN BED WITH RISE AND FALL OF CHEST NO S/S OF DISTRESS. WILL CONTINUE TO MONITOR.
--- NOTE | 2021-09-26 02:14 | NUR ---
PT STILL IN BED ASLEEP WITH RISE AND FALL OF CHEST, NO S/S OF DISTRESS UPON ROUNDS. WILL CONTINUE TO MONITOR.
--- NOTE | 2021-09-26 06:05 | NUR ---
SHIFT SUMMARY PT AOX2 AT TIMES BUT STILL WANDERS IN THE HALLWAY ATTEMPTING TO ENTER OTHER'S ROOMS. PT STILL ASLEEP WITHOUT S/S OF DISTRESS AND WATER IS AT THE BEDSIDE. THIS NURSE WILL CONTINUE TO MONITOR UNTIL REPORT IS GIVEN.
--- NOTE | 2021-09-26 16:47 | NUR ---
NO ACUTE CHANGES. PT AOX1 AND STILL DOES NOT LIKE BEING TOUCHED. PT SEEMS TO TOLERATE MINIMAL INTERACTION. AID WAS ABLE TO CLEAN PT UP AND CHANGE HER CLOTHES TODAY. PT WALKING AROUND IN ROOM INDEPENDENTLY. NO DISTRESS NOTED AT THIS TIME WILL CONTINUE TO MONITOR.
--- NOTE | 2021-09-26 22:16 | NUR ---
BILLY IS LAYING QUIETLY ON HER LEFT SIDE IN BED. SHE DOES NOT ACKNOWLEDGE OUR BEING IN ROOM, EVEN WHEN THIS RN HOLDS HER HAND. LOTION RUBBED ON ARMS AND HANDS. AN ATTEMPT WAS MADE FOR ORAL CARE, BUT PATIENT REFUSED (TWICE) TO OPEN HER MOUTH. GOT UP AND ACTUALLY USED THE BATHROOM INDEPENDENTLY AT START OF SHIFT. WILL CONTINUE TO MONITOR THIS LADY CLOSELY WHILE ATTEMPTING COMFORT MEASURES
--- NOTE | 2021-09-27 06:24 | NUR ---
this lady was very difficult to care for last night. from the start of the night, Sincere would not take her hs medications or allow us to take her to the bathroom. As the night progressed, she would allow us to hold her hand, and then assist her to the bedside commode (twice) Unfortunately, she still is refusing oral care or any fluids.
--- NOTE | 2021-09-27 09:03 | NUR ---
I HELPED THE PATIENT BACK INTO BED. WATER WAS OFFERED. THE PATIENT WAS ABLE TO TAKE TWO SMALL DRINKS. A WARM BLANKET WAS OFFERED. THE PATIENT WANTED TO WATCH TV.
--- NOTE | 2021-09-27 11:51 | NUR ---
PATIENT WAS ABLE TO DRINK SOME PEPSI. THE PATIENT BRUSHED THEIR TEETH. AND GIVEN A NEW TOP. THE PATIENT IS WATCHING TV.
--- NOTE | 2021-09-27 16:46 | NUR ---
PATIENT IS SITTING UP IN BED. TAKING SMALL SIPS OF WATER AND DIET PEPSI. PATIENT DID NOT EAT ANY LUNCH.
--- NOTE | 2021-09-27 16:48 | NUR ---
PATIENT HAD A VIST FROM A EPIDEMIOLOGIST.
--- NOTE | 2021-09-27 17:54 | NUR ---
PATIENT ASKED THIS NURSE WHEN DINNER WOULD BE HERE.
--- NOTE | 2021-09-28 02:08 | NUR ---
PATIENT CONTINUES TO REFUSE ANY PERSONAL HYGIENE CARE. SHE DID ALLOW ME TO USE SWAB IN HER MOUTH. DID NOT WANT TO BRUSH TEETH. AND SHE REALLY ENJOYED HAVING LOTION APPLIED TO ARMS, NECK AND FACE. TOOK SEVERAL SIPS OF APPLE JUICE BY HERSELF WHILE SITTING UPRIGHT AT SIDE OF BED
--- NOTE | 2021-09-28 05:25 | NUR ---
BILLY SLEPT ALMOST ALL NIGHT. SHE DID ENJOY THE LOTION RUB AND WAS ABLE TO TAKE SEVERAL SIPS OF APPLE JUICE ONCE SHE WAS SITTING UP STRAIGHT. NO INDICATIONS OF DISCOMFORT. DID GET UP TO USE BATHROOM TWICE. SPOKE WITH SISTER JW LAST NIGHT. SHE WAS GLAD FOR THE UPDATE AND SAID SHE WOULD CALL BACK IN THE MORNING AND HOPEFULLY GET TO TALK TO BILLY
--- NOTE | 2021-09-28 11:13 | NUR ---
PATIENT IN BED RESTING. REPOSITIONED PATIENTS LEGS FOR COMFORT.
--- NOTE | 2021-09-28 11:16 | NUR ---
THIS NURSE HELPED THE PATIENT BRUSH THEIR TEETH. PROVIDED A WARM WASH CLOTH. PUT LOTION ON FOR THE PATIENT. WASHED AND COMBED THEIR HAIR. REPOSITIONED IN BED. HELPED THE PATIENT ANSWER PHONE CALL FROM SISTER VERONIKA.
--- NOTE | 2021-09-28 14:05 | NUR ---
THIS NURSE HELPED THE PATIENT UP TO THE BSC, AND REPOSITIONING IN BED.
--- NOTE | 2021-09-28 18:24 | NUR ---
PATIENT WAS GIVEN FRESH WATER, AND A WARM BLANKET. PATIENT IS RESTING IN BED.
--- NOTE | 2021-09-29 03:49 | NUR ---
SHIFT SUMMARY PATIENT ON COMFORT CARE. AXO X 1-2 AND 1-2 ASSIST TO BSC. NO IV ACCESS. CHER-AE HEIGHTS AND REFUSING MEDICATION. SOMNOLENT THROUGHOUT SHIFT. NO S/SX OF PAIN, SOB, AND N/V. HX DEMENTIA. CALL LIGHT IN REACH. BED IN LOWEST POSITION AND ALARM ACTIVATED. WILL CONTINUE TO MONITOR UNTIL DAY SHIFT NURSE ASSUMES CARE.
--- NOTE | 2021-09-29 11:53 | NUR ---
Spoke with patients sister. they wanted updates on if they should come. Advised she is transitioning. Advised they may not make it on time. They are not vaccinated and the weather is difficult. She will advised the and pt chaplian to come in. Will place quilt advised we will pray for danette and give her comfort. placed quilt and lavender. updated prn meds.
--- NOTE | 2021-09-29 16:59 | NUR ---
SHIFT SUMMARY COMFORT CARE MEDICATIONS WERE PUT IN THIS AM AND PT HAS BEEN RECIEVING MEDICATIONS FOR PAIN ACCORDING TO SCHEDULE ALONG WITH 2 DOSES OF [facility]. SHE WAS ABLE TO GET A BED BATH AND CHANE HER SHEETS THIS MOORNING ND WE HAVE BEEN PROVIDING ORAL CARE AND CARE OF HER DRY SKIN EVERY TWO HOURS. PTS IS AT THE BEDSIDE AND HER LOAN REPRESENTATIVE VISITED [facility] IN THE DAY. WILL CONTINUE TO MONITOR.
--- NOTE | 2021-09-29 18:26 | NUR ---
PATIENT TIME OF 1730. WAS AT BEDSIDE AND INFROMED REST OF FAMILY MEMEBERS. INFORMED AND PALLIATIVE CAME TO SPEAK WITH FAMILY. AWAITING HOME PLASTIC PRESS MOLDER.
--- NOTE | 2021-09-29 19:35 | NUR ---
[facility] HOME PICKUP UP PATIENT. ALL BELONGINGS TAKEN.
== END 2021-09-29 17:30 ==
LOC: ER 10:38 → EOR 15:10 → ER 15:10 → ERHOLD 09-19 13:05 → ER 09-19 13:05 → MEDS 09-19 13:05 → EOR 09-19 13:05 → MEDS 09-19 13:05 → EOR 09-19 13:05 → ERHOLD 09-19 14:50 → MEDS 09-19 14:50 → ERHOLD 09-19 14:51 → MEDS 09-19 14:51 → ERHOLD 09-20 15:37 → MEDS 09-20 15:37 → ER 09-20 15:37 → MEDS 09-20 15:38 → ERHOLD 09-20 15:38 → MEDS 09-20 15:39
PROVIDERS: Emergency Medicine; ADMIT Internal Medicine
DX: G31.83 Neurocognitive disorder with Lewy bodies (principal); F02.81 Dementia in other diseases classified elsewhere, unspecified severity, with behavioral disturbance; J44.9 Chronic obstructive pulmonary disease, unspecified; M79.7 Fibromyalgia; L40.9 Psoriasis, unspecified; Z66 Do not resuscitate; Z88.0 Allergy status to penicillin
CPT/HCPCS: 0241U; 36415; 80053; 81001; 84436; 84443; 85025; 87086; 94640; 94664; 94760; 99285-25; A9270; G0480; J0696; J2060; J7030; J7050; J8610; Q3014